=== PATIENT | female | born 1980 | race American Indian/Alaskan Native ===

== ENCOUNTER 2016-03-22 08:14 | Outpatient (CLI) | payer MEDICARE ==
--- NOTE | 2016-03-22 10:18 | Ultrasound Report ---
RENAL ULTRASOUND: 03/22/16 00:00:00 CLINICAL: End-stage renal disease. FINDINGS: High resolution ultrasound demonstrated small kidneys with marked diffuse increased renal echogenicity. The right kidney measures 9.2 x 4.0 x 4.3 cm with a parenchymal thickness of 1.6 cm and the left kidney measures 7.2 x 4.6 x 4.3 cm with a parenchymal thickness of 1.4 cm. A few bilateral renal cysts. The largest on the right is in the upper pole and measures 1.9 the 1.6 x 1.6 cm. The largest on the left is in the upper pole and measures 2.0 x 1.6 x 1.2 cm. Moderate dilatation of the inferior portion of the right intrarenal collecting system. This suggests that there may be a duplication of the collecting system without dilatation of an upper pole moiety or dilatation of the ureter. No renal calculus or mass identified. The left renal collecting system is normal. A moderately distended and normal urinary bladder. IMPRESSION: Bilateral medical renal disease and bilateral benign renal cysts. Focal dilatation of the intrarenal collecting system of the lower pole the right kidney suggest that there may be possible duplication of the right renal collecting system and at least partial obstruction of a lower pole moiety.
--- NOTE | 2016-03-22 14:38 | Mammography Report ---
BONE DEXA:03/22/16 08:14:00 CLINICAL: 35-year-old with long-term steroid use and osteodystrophy. COMPARISON: 06/25/12 TECHNIQUE: Two site bone DEXA performed on an [employer] scanner. FINDINGS: The average BMD of the lumbar spine L1-L4 is 0.703g/cm squared with a T-score of -3.1 and a Z-score of -3.1. This compares to 0.844g/cm squared on the last exam and represents a -16.7% change from the previous baseline. The average BMD of the left hip is 0.823g/cm squared with a T-score of -1.0 and a Z-score of -0.9. This compares to 0.835g/cm squared on the last exam and represents a -1.4% change from the previous baseline. IMPRESSION: 1. WHO classification: Osteoporosis with high fracture risk based on spine measurements. A dramatic decline in spine BMD compared to the previous exam. 2. WHO classification: Osteopenia with increased fracture risk based on left hip measurements. A slight decline in left hip BMD compared to the previous exam. RECOMMENDATION: Clinical correlation and routine screening. DEFINITIONS: BMD = Bone Mineral Density T-score = BMD related to mean peak bone mass of young adult (mean expressed in Standard Deviation) Z-score = Age matched BMD expressed in SD World Health Organization (WHO) Diagnostic Criteria Normal T-score > -1 SD Osteopenia T-score between -1 and -2.4 SD Osteoporosis T-score -2.5 SD or below NOTE: BMD is not the only risk factor for fracture; also consider factors such as the patient's age, risk of falling, previous osteoporotic fracture, family history of osteoporotic fractures, current smoker, and low body weight. Z-scores are not calculated if >80 years of age.
== END 2016-03-22 08:15 | disposition home or self-care (01) ==
LOC: SPVWC 08:14
DX: N18.6 End stage renal disease (principal); N28.1 Cyst of kidney, acquired; N25.0 Renal osteodystrophy; M81.0 Age-related osteoporosis without current pathological fracture; M85.88 Other specified disorders of bone density and structure, other site; Z79.52 Long term (current) use of systemic steroids
CPT/HCPCS: 76770; 77080